=== PATIENT | male | born 1975 | race Two or more races ===

== ENCOUNTER 2021-11-20 10:39 | Inpatient (IN) | payer OTHER ==
[2021-11-20 11:11] VITALS: BMI 26.4
[2021-11-20] MEDS ORDERED: MAG HYDROX/AL HYDROX/SIMETH 30 ML UNIT-DOSE CUP PO PRN (12:52)
[2021-11-20] MEDS ORDERED: P-EPHED 60MG/TRIPROLIDI 2.5MG TABLET PO PRN (12:52)
[2021-11-20] MEDS ORDERED: LOPERAMIDE HCL 2 MG CAPSULE PO PRN (12:52)
[2021-11-20] MEDS ORDERED: MAGNESIUM CITRATE 300 ML BOTTLE PO PRN (12:52)
[2021-11-20] MEDS ORDERED: guaiFENesin 200 MG/10 ML 10 ML UNIT-DOSE CUPS PO PRN (12:52)
[2021-11-20] MEDS ORDERED: NALOXONE HCL (KLOXXADO) 8 MG SPRAY NS PRN (12:52)
[2021-11-20] MEDS ORDERED: MAGNESIUM HYDROX 2400MG/30ML ORAL SUSPENSION 30 ML CUP PO PRN (12:52)
[2021-11-20 16:25] LABS: HEMATOCRIT 37.4 % (35.4-49); HEMOGLOBIN 12.9 GM/dL (11.7-16.9); MCH 32.5 pg (25.7-33.7); MCHC 34.6 g/dl (32.0-35.9); MEAN CELL VOLUME 93.9 fl (80-96); MEAN PLT VOLUME 7.6 fl (7.5-11.1); PLATELET COUNT 270 10^3/uL (134-434); RBC 3.98 M/mm3 (4.00-5.60); RDW 12.9 % (11.9-15.9); WHITE BLOOD COUNT 6.6 K/mm3 (4.0-10.0)
[2021-11-20 16:26] LABS: CALCIUM 8.5 mg/dL (8.5-10.1)
[2021-11-20 16:27] LABS: ALBUMIN 3.7 g/dl (3.4-5.0)
[2021-11-20 16:32] LABS: BILIRUBIN,TOTAL 0.4 mg/dL (0.2-1)
[2021-11-20] MEDS: hydrOXYzine PAMOATE 25 MG CAPSULE (FP) PO SCH ×3 (20:57→21:03)
[2021-11-20] MEDS: MELATONIN 5 MG TABLETS PO SCH (21:03)
[2021-11-20] MEDS: THIAMINE HCL 100 MG TABLET (FP) PO SCH (21:03)
[2021-11-20] MEDS: NICOTINE 10 MG CARTRIDGE (INHALER) IH PRN (21:04)
[2021-11-20] MEDS: NICOTINE 14 MG/24 HOURS TOPICAL PATCH TD SCH (21:06)
[2021-11-20] MEDS ORDERED: TUBERCULIN PPD 5 TU/0.1ML VIAL ID ONE (22:18)
[2021-11-21] MEDS: hydrOXYzine PAMOATE 25 MG CAPSULE (FP) PO SCH ×5 (06:17→21:05)
[2021-11-21] MEDS ORDERED: methaDONE HCL 10 MG TABLET PO ONE (09:42)
[2021-11-21] MEDS ORDERED: methaDONE 40 MG, methaDONE 20 MG PO ONE (09:52)
[2021-11-21] MEDS ORDERED: methaDONE HCL 10 MG TABLET ONE (09:57)
[2021-11-21] MEDS ORDERED: methaDONE HCL 40 MG DISPERSABLE TABLET ONE (09:57)
[2021-11-21] MEDS: PRENATAL VITAMINS W/ FOLIC ACID TABLET (FP) PO SCH (10:00)
[2021-11-21] MEDS: NICOTINE 14 MG/24 HOURS TOPICAL PATCH TD SCH (10:00)
[2021-11-21] MEDS: NICOTINE 10 MG CARTRIDGE (INHALER) IH PRN ×2 (10:01→21:05)
[2021-11-21] MEDS: METHOCARBAMOL 500 MG TABLET PO PRN (12:06)
[2021-11-21] MEDS: cloNIDine HCL 0.1 MG TABLET PO PRN (12:06)
[2021-11-21] MEDS: THIAMINE HCL 100 MG TABLET (FP) PO SCH (21:04)
[2021-11-21] MEDS: MELATONIN 5 MG TABLETS PO SCH (21:05)
[2021-11-22] MEDS: hydrOXYzine PAMOATE 25 MG CAPSULE (FP) PO SCH ×5 (06:12→21:10)
[2021-11-22] MEDS: cloNIDine HCL 0.1 MG TABLET PO PRN (06:12)
[2021-11-22] MEDS: NICOTINE 10 MG CARTRIDGE (INHALER) IH PRN ×2 (06:13→14:21)
[2021-11-22] MEDS: PRENATAL VITAMINS W/ FOLIC ACID TABLET (FP) PO SCH (09:58)
[2021-11-22] MEDS: NICOTINE 14 MG/24 HOURS TOPICAL PATCH TD SCH (09:58)
[2021-11-22] MEDS: METHOCARBAMOL 500 MG TABLET PO PRN (09:59)
[2021-11-22 10:55] LABS: PH,URINE 6.5 (5.0-8.0); URINE APPEARANCE CLEAR; URINE BILIRUBIN NEGATIVE (NEGATIVE); URINE COLOR YELLOW; URINE GLUCOSE (UA) NEGATIVE (NEGATIVE); URINE KETONE NEGATIVE (NEGATIVE); URINE LEUK ESTERASE NEGATIVE (NEGATIVE); URINE NITRITE NEGATIVE (NEGATIVE); URINE PROTEIN NEGATIVE (NEGATIVE); URINE UROBILINOGEN 0.2 mg/dL (0.2-1.0)
[2021-11-22] MEDS ORDERED: BUPRENORPHINE HCL 150 MCG, BUPRENORPHINE HCL 75 MCG BC PRN (12:11)
[2021-11-22] MEDS ORDERED: cloNIDine HCL 0.1 MG TABLET PO ONE (12:30)
[2021-11-22] MEDS ORDERED: BUPRENORPHINE HCL 150 MCG, BUPRENORPHINE HCL 75 MCG BC ONE (12:30)
[2021-11-22 13:51] LABS: SYPHILIS W/ RPR CONF NON-REACTIVE (NONREACTIVE)
[2021-11-22] MEDS ORDERED: BUPRENORPHINE HCL 75 MCG FILM BC ONE (14:14)
[2021-11-22] MEDS ORDERED: BUPRENORPHINE HCL 150 MCG FILM BC ONE (14:14)
[2021-11-22] MEDS ORDERED: cloNIDine HCL 0.1 MG TABLET PO PRN (16:11)
[2021-11-22] MEDS: IBUPROFEN 400 MG TABLET (FP) PO PRN (19:23)
[2021-11-22] MEDS: THIAMINE HCL 100 MG TABLET (FP) PO SCH (21:10)
[2021-11-22] MEDS: MELATONIN 5 MG TABLETS PO SCH (21:10)
[2021-11-23] MEDS ORDERED: BUPRENORPHINE HCL 150 MCG, BUPRENORPHINE HCL 75 MCG BC PRN
[2021-11-23] MEDS ORDERED: BUPRENORPHINE HCL 150 MCG FILM BC ONE ×3 (06:04→18:01)
[2021-11-23] MEDS ORDERED: BUPRENORPHINE HCL 75 MCG FILM BC ONE ×3 (06:04→18:01)
[2021-11-23] MEDS: BUPRENORPHINE HCL 150 MCG, BUPRENORPHINE HCL 75 MCG BC SCH ×2 (06:05→18:03)
[2021-11-23] MEDS: hydrOXYzine PAMOATE 25 MG CAPSULE (FP) PO SCH ×5 (06:05→21:09)
[2021-11-23] MEDS: NICOTINE 10 MG CARTRIDGE (INHALER) IH PRN ×2 (06:07→09:44)
[2021-11-23] MEDS: ACETAMINOPHEN 325 MG TABLET (FP) PO PRN ×2 (08:06→21:10)
[2021-11-23] MEDS: NICOTINE 14 MG/24 HOURS TOPICAL PATCH TD SCH (09:41)
[2021-11-23] MEDS: PRENATAL VITAMINS W/ FOLIC ACID TABLET (FP) PO SCH (09:41)
[2021-11-23] MEDS: diazePAM 5 MG TABLET PO PRN ×2 (09:42→16:14)
[2021-11-23] MEDS: METHOCARBAMOL 500 MG TABLET PO PRN ×2 (09:42→14:32)
[2021-11-23] MEDS: cloNIDine HCL 0.1 MG TABLET PO PRN (09:42)
[2021-11-23] MEDS: MELATONIN 5 MG TABLETS PO SCH (21:09)
[2021-11-23] MEDS: THIAMINE HCL 100 MG TABLET (FP) PO SCH (21:09)
[2021-11-24] MEDS: hydrOXYzine PAMOATE 25 MG CAPSULE (FP) PO SCH ×5 (06:43→21:12)
[2021-11-24] MEDS: BUPRENORPHINE HCL 450 MCG FILM BC SCH ×2 (06:43→17:57)
[2021-11-24] MEDS: IBUPROFEN 400 MG TABLET (FP) PO PRN (06:46)
[2021-11-24] MEDS: NICOTINE 14 MG/24 HOURS TOPICAL PATCH TD SCH (09:53)
[2021-11-24] MEDS: PRENATAL VITAMINS W/ FOLIC ACID TABLET (FP) PO SCH (09:53)
[2021-11-24] MEDS: diazePAM 5 MG TABLET PO PRN ×2 (09:54→21:12)
[2021-11-24] MEDS: NICOTINE 10 MG CARTRIDGE (INHALER) IH PRN (09:56)
[2021-11-24] MEDS: METHOCARBAMOL 500 MG TABLET PO PRN (12:00)
[2021-11-24] MEDS: cloNIDine HCL 0.1 MG TABLET PO PRN (13:40)
[2021-11-24] MEDS: THIAMINE HCL 100 MG TABLET (FP) PO SCH (21:12)
[2021-11-24] MEDS: MELATONIN 5 MG TABLETS PO SCH (21:12)
[2021-11-25] MEDS: NICOTINE 10 MG CARTRIDGE (INHALER) IH PRN (06:15)
[2021-11-25] MEDS: hydrOXYzine PAMOATE 25 MG CAPSULE (FP) PO SCH ×3 (06:15→14:19)
[2021-11-25 07:07] VITALS: BP 119/89; PULSE 95; TEMP 97.5
[2021-11-25] MEDS: diazePAM 5 MG TABLET PO PRN ×2 (07:12→14:19)
[2021-11-25] MEDS: PRENATAL VITAMINS W/ FOLIC ACID TABLET (FP) PO SCH (09:55)
[2021-11-25] MEDS: NICOTINE 14 MG/24 HOURS TOPICAL PATCH TD SCH (09:55)
[2021-11-25] MEDS: METHOCARBAMOL 500 MG TABLET PO PRN (14:19)
[2021-11-25] MEDS: ACETAMINOPHEN 325 MG TABLET (FP) PO PRN (14:20)
== END 2021-11-25 05:20 | disposition left against medical advice (07) | DRG 770 ==
LOC: YASAS 10:39 → Y5N 17:34
PROVIDERS: ADMIT Allergy & Immunology; ATTEND Psychiatry & Neurology Pain Medicine
PROC: HZ42ZZZ Group Counseling for Substance Abuse Treatment, Cognitive-Behavioral (ICD-10-PCS; principal; 2021-11-20)
DX: F11.20 Opioid dependence, uncomplicated (principal); F10.20 Alcohol dependence, uncomplicated; F17.210 Nicotine dependence, cigarettes, uncomplicated
CPT/HCPCS: 36415; 80053; 81003; 85027; 86780; 86803; 93005; 93010; C9803-CS; J0735; U0003; U0005